=== PATIENT | female | born 1995 | race Caucasian/White ===

== ENCOUNTER 2023-06-02 22:13 | Outpatient (REF) | payer MEDICAID, SELFPAY | END 2023-06-02 22:14 | disposition home or self-care (01) | LOC: LAB 22:13 | PROVIDERS: PCP Obstetrics & Gynecology; Visit Provider Obstetrics & Gynecology | DX: L02.91 Cutaneous abscess, unspecified (principal) | CPT/HCPCS: 87070; 87150; 87186 ==